=== PATIENT | female | born 1940 | race African-American/Black ===

== ENCOUNTER 2016-07-09 08:49 | Emergency (ER) | payer MEDICARE, MEDICAID | END 2016-07-09 09:57 | disposition home or self-care (01) | LOC: ER 08:49 ==

== ENCOUNTER 2016-07-20 21:16 | Emergency (ER) | payer MEDICARE, MEDICAID | END 2016-07-20 22:47 | disposition home or self-care (01) | LOC: ER 21:16 | DX: H65.02 Acute serous otitis media, left ear (principal); H61.22 Impacted cerumen, left ear ==

== ENCOUNTER 2016-07-27 22:29 | Emergency (ER) | payer MEDICARE, MEDICAID ==
[2016-07-28] MEDS ORDERED: ORPHENADRINE 60 MG/2 ML AMP ONE (00:33)
== END 2016-07-28 03:00 | disposition home or self-care (01) ==
LOC: ER 22:29
DX: H66.002 Acute suppurative otitis media without spontaneous rupture of ear drum, left ear (principal); H60.502 Unspecified acute noninfective otitis externa, left ear; H60.332 Swimmer's ear, left ear